=== PATIENT | male | born 1980 | race Two or more races ===

== ENCOUNTER 2018-02-10 03:54 | Emergency (ER) | payer OTHER ==
[~2018-02-10] VITALS: Ht 172.7 cm; Wt 88.6 kg
[2018-02-10 03:56] VITALS: BP 139/96
[2018-02-10] MEDS ORDERED: BACITRACIN ZINC OINT 500U/GM, 0.9 GM ONE (04:58)
== END 2018-02-10 06:01 | disposition home or self-care (01) ==
LOC: ED 05:50
DX: S62.521B Displaced fracture of distal phalanx of right thumb, initial encounter for open fracture (principal); S67.190A Crushing injury of right index finger, initial encounter; W23.0XXA Caught, crushed, jammed, or pinched between moving objects, initial encounter; Y93.89 Activity, other specified; Y92.89 Other specified places as the place of occurrence of the external cause; Y99.0 Civilian activity done for income or pay
CPT/HCPCS: 11730; 99284